=== PATIENT | male | born 2000 | race Caucasian/White ===

== ENCOUNTER 2018-04-16 20:03 | Emergency (ER) | payer OTHER ==
--- NOTE | 2018-04-16 21:00 | RAD ---
FOUR VIEW RIGHT ELBOW SERIES: 04/16/18 INDICATION: Fall from horse with pain. FINDINGS: There is no evidence of fracture or dislocation. No joint capsular distention. IMPRESSION: No acute osseous abnormality of the right elbow. POS: [facility]
[2018-04-16] MEDS ORDERED: Ibuprofen 800 MG TAB ONE (21:04)
[2018-04-16] MEDS ORDERED: HYDROcodone/Acetaminophen 10/325 mg Tablet ONE (21:04)
--- NOTE | 2018-04-16 21:04 | RAD ---
RIGHT WRIST THREE VIEWS: 04/16/18 INDICATION: Fall from horse with pain. FINDINGS: There is a mildly comminuted intra-articular distal right radial fracture. There is a minimal intra-a rticular gap along the medial aspect of the articular surface. Ulna minus configuration present. Anamika te density is seen along the distal aspect of the ulnar styloid that may relate to a minute avulsion injury. Mild osseous irregularity at the 5th CMC joint may relate to sequela from prior injury. IMPRESSION: Intra-articular distal radial fracture. Recommend orthopedic consultation. Additional details are discussed above. POS: [facility]
--- NOTE | 2018-04-16 21:18 | RAD ---
RADIOGRAPH RIGHT FOREARM 2 VIEWS: 04/16/18 HISTORY: 17-year-old male status post acute traumatic injury to the forearm due to fall. FINDINGS: There is a mildly comminuted, predominantly transversely oriented fracture of the distal radial metap hysis, with minimal displacement, and mild buckling of the dorsal cortical surface. It is uncertain w hether any of the fracture lucencies extend to involve the distal radial articular surface, but there is no step-off at that articular surface. The rest of the radius, and the entire ulna, are intact. IMPRESSION: Acute, traumatic, closed, comminuted, and minimally displaced fracture of the distal radial metaphysi s. POS: [facility]
== END 2018-04-16 21:21 | disposition home or self-care (01) ==
LOC: MADERS 20:03
DX: S52.571A Other intraarticular fracture of lower end of right radius, initial encounter for closed fracture (principal); F17.210 Nicotine dependence, cigarettes, uncomplicated; V80.010A Animal-rider injured by fall from or being thrown from horse in noncollision accident, initial encounter

== ENCOUNTER 2021-05-21 19:39 | Emergency (ER) | payer OTHER ==
[2021-05-21] MEDS ORDERED: Pantoprazole 40 MG VIAL ONE (20:15)
[2021-05-21 21:21] LABS: ALT (SGPT) 18 U/L (8-55); AST (SGOT) 18 U/L (5-34); Albumin 4.5 g/dL (3.5-5.0); Alkaline Phosphatase 55 U/L (40-110); Anion Gap 15 mmol/L (10-20); BUN (Urea Nitrogen) 12 mg/dL (8.9-20.6); Bilirubin, Total 0.8 mg/dL (0.2-1.2); Calc. Creatinine Clearance 0 mL/min (70-130); Calcium 9.8 mg/dL (7.8-10.44); Carbon Dioxide 25 mmol/L (22-29); Globulin 2.8 g/dL (2.4-3.5); Glucose 94 mg/dL (70-105); Protein, Total 7.3 g/dL (6.0-8.3)
[2021-05-21 21:38] LABS: Chloride 104 mmol/L (98-107); Sodium 140 mmol/L (136-145)
[2021-05-21 21:57] LABS: Hemoglobin 16.2 g/dL (14.0-18.0); Mean Corpuscular HGB CONC 32.8 g/dL (32.0-36.0); Mean Corpuscular Volume 91.4 fL (78.0-98.0); Mean Platelet Volume 9.9 fL (7.4-10.4); Platelet Count 232 thou/uL (130-400); RBC Distribution Width 11.5 % (11.5-14.5); Red Blood Cell (RBC) Count 5.41 mill/uL (4.70-6.10); White Blood Cell (WBC) Count 5.5 thou/uL (4.8-10.8)
[2021-05-21 21:58] LABS: Band 6 % (5-11); Eosinophils 2 % (0-10); Lymphocytes 23 % (21-51); MDiff Complete? YES; Monocytes 18 % (0-10); Neutrophil 42 % (42-75); RBC Morphology Normal; Reactive Lymphocytes 8 % (0-10)
[2021-05-21 22:07] LABS: INR-International Normal Ratio 1.1; Prothrombin Time 13.7 sec (12.0-14.7)
[2021-05-21 22:15] LABS: PTT 37.5 sec (22.9-36.1)
== END 2021-05-21 22:28 | disposition home or self-care (01) ==
LOC: MADERS 19:39
DX: K92.0 Hematemesis (principal); F17.210 Nicotine dependence, cigarettes, uncomplicated
CPT/HCPCS: 80053; 82274; 85025; 85610; 85730; 86850; 86900; 86901; 96374; C9113

== ENCOUNTER 2021-07-18 16:53 | Emergency (ER) | payer OTHER | END 2021-07-18 17:47 | disposition home or self-care (01) | LOC: MADERS 16:53 | DX: S60.221A Contusion of right hand, initial encounter (principal); F17.210 Nicotine dependence, cigarettes, uncomplicated; W23.0XXA Caught, crushed, jammed, or pinched between moving objects, initial encounter ==

== ENCOUNTER 2022-03-21 19:20 | Emergency (ER) | payer OTHER | END 2022-03-21 20:03 | disposition home or self-care (01) | LOC: MADERS 19:20 | DX: J06.9 Acute upper respiratory infection, unspecified (principal); F17.210 Nicotine dependence, cigarettes, uncomplicated; Z20.822 Contact with and (suspected) exposure to COVID-19 | CPT/HCPCS: 87081; 87430; 99283; U0003; U0005 ==